=== PATIENT | male | born 1945 | race Caucasian/White ===

== ENCOUNTER → 2018-03-10 13:45 | Outpatient (CLI) | payer MEDICARE, OTHER, SELFPAY ==
--- NOTE | 2018-03-10 | DI.ECHO.S_ITS ---
[facility] +---------+ : : [address] : [place] : : : : [id number] : : : : Phone: [phone]---------+ Echocardiogram Report + + :Name: ADDIE EISENBERG Study Date: 03/10/2018 Height: 68 in : :[facility] Exam Location: [place] Weight: 193 lb : : Gender: Male BSA: 2.0 m2 : :: 1945 Age: 72 yrs BP: 112/62 mmHg: :Reason For Study: Atrial Fibrillation : :Ordering Physician: Latesha : :Rajinder Performed By: Jessica Becker : :Referring: LATESHA AKHTAR : + + Interpretation Summary 1) Normal left ventricular size, thickness, wall motion, and systolic function (EF 55-60%). 2) Normal right ventricular size and function. 3) There is mild aortic regurgitation. 4) Sinus rhythm present during the study. 5) Commpared to the echo done 09/20/2012, no significant change. Procedure: A two-dimensional transthoracic echocardiogram with color flow and Doppler was performed. The study quality was technically adequate. Comparison is made with the echocardiogram of 09/20/2012. The patient was in normal sinus rhythm during the exam. Left Ventricle: The left ventricle is normal in size. Left ventricular wall thickness is normal. The ejection fraction is estimated to be 55-60%. Left ventricular systolic function is normal without focal wall motion abnormalities. Right Ventricle: The right ventricle is normal size. The right ventricular systolic function is normal. Atria: Both atria are normal in size. The interatrial septum is intact with no evidence for an atrial septal defect. Mitral Valve: The mitral valve is normal in structure and function. There is trace mitral regurgitation. Aortic Valve: The aortic valve is trileaflet. The aortic valve opens well. There is mild aortic valve sclerosis. There is no aortic valve stenosis. There is mild aortic regurgitation. Tricuspid Valve: The tricuspid valve is normal in structure and function. There is mild tricuspid regurgitation. The right ventricular systolic pressure is estimated at 23 mmHg assuming a right atrial pressure of 3 mm Hg. Pulmonic Valve: The pulmonic valve is not well seen, but is grossly normal. There is a trace or physiologic amount of pulmonic regurgitation. Great Vessels: The aortic root is normal size. The ascending aorta is at the upper limits of normal in size. The IVC is of normal diameter and collapses greater than 50% with a sniff. This suggests a low right atrial pressure of 3 mm Hg. Pericardium/ Pleura There is no pericardial effusion. There is an anterior echo-free space consistent with a fat pad. There is no pleural effusion. MMode/2D Measurements & Calculations LVIDd: 4.5 cm LVOT diam: 2.5 cm LVIDs: 3.4 cm Ao root diam: 3.6 cm FS: 24.9 % asc Aorta Diam: 3.6 cm IVSd: 1.0 cm Ao Arch Diam (Prox Trans): 2.3 cm LVPWd: 1.1 cm LV rodriguez. diameter/BSA (cm/m^2): 2.2 LV sys. diameter/BSA (cm/m^2): 1.7 LA A2 area: 20.3 cm2 RA long axis: 4.3 cm LA A4 area: 18.7 cm2 RA area: 13.0 cm2 LA length (vol): 5.1 cm RA vol: 33.3 ml LA vol: 63.2 ml RA : 16.5 ml/m2 LA vol index: 31.4 ml/m2 RVD1 (basal): 4.7 cm TAPSE: 2.5 cm Doppler Measurements & Calculations Ao V2 max: 120.8 cm/sec LVOT Max Yayo: 96.3 cm/sec Ao V2 mean: 84.3 cm/sec LV V1 max P.7 mmHg Ao max P.8 mmHg LV V1 VTI: 20.0 cm Ao mean P.2 mmHg LULA(I,D): 3.9 cm2 Ao V2 VTI: 24.3 cm LULA(V,D): 3.8 cm2 sev ratio: 0.82 LULA indexed to BSA (cm^2/m^2): 1.9 AI P1/2t: 951.2 msec AI dec slope: 104.1 cm/sec2 MV E max yayo: 36.7 cm/sec TR max yayo: 221.8 cm/sec MV A max yayo: 47.7 cm/sec TR max P.7 mmHg MV E/A: 0.77 PA V2 max: 61.3 cm/sec MV dec time: 0.17 sec PA V2 mean: 42.7 cm/sec PA mean P.84 mmHg PA pr(Accel): 26.6 mmHg Reading Physician:04:00 PM
== END ==
PROVIDERS: Family Provider Family Medicine; PCP Family Medicine; Visit Provider Internal Medicine Cardiovascular Disease
DX: I48.0 Paroxysmal atrial fibrillation (principal); I08.2 Rheumatic disorders of both aortic and tricuspid valves
CPT/HCPCS: 93306

== ENCOUNTER → 2018-06-04 16:46 | Outpatient (CLI) | payer MEDICARE, OTHER, SELFPAY | PROVIDERS: Family Provider Family Medicine; PCP Family Medicine; Visit Provider Physician Assistant | DX: L72.0 Epidermal cyst (principal) | CPT/HCPCS: 87070; 87075; 87205 ==

== ENCOUNTER → 2018-12-28 13:00 | Oncology outpatient (ONC) | payer MEDICARE, OTHER, SELFPAY ==
--- NOTE | 2018-06-16 10:27 | ONC.SCHED ---
CALLED PT. TO CANCEL HIS APT. WITH SIRI PER HER REQUEST SHE IS OUT SICK TODAY. LET PT KNOW THAT SIRI WILL RESCHEDULE WHEN SHE IS BACK IN THE OFFICE.
--- NOTE | 2018-06-20 15:24 | MSW.VISIT ---
RADIO STATION OPERATOR Visit note - Data of Consult Primary Care Provider: Pk Burt MD - Consult Narrative Reason for consult: Counseling to adjust to coping with cancer of family members. Narrative: Michael Meraz is a 72 year old male who is seeking counseling to help him to cope with the terminal cancer diagnosis of both his stepdaughter and [id number]. He expresses that he and his , Rosangela, are trying to learn some new skills in how they can carry on supporting their daughter, primarily, while trying to maintain a sense of normalcy in their own lives and marriage. He states that they go down to spend time with their daughter, her 9-year old son, and the rest of the family several times per week. Their dtr is reportedly very frail and her disease is very advanced. RADIO STATION OPERATOR spent time providing information about differences in coping with grief and intensely emotional situations in families, and how communication styles can also vary from family member to family member. Pt's is feeling like she is needing to prioritize being with her dtr and supporting her grandson/son-in-law in getting through this difficult time. They remain hopeful that she may qualify for an immunotherapy drug in early July, which is their last hope for any kind of disease stabilization and prolongation of life. Pt presents as very insightful and introspective, and fully supports his in whatever they have to do to help their daughter at this time. After they were able to share with each other their own challenges with coping in this situation, pt was able to recognize that he is feeling more of an urgency to do something, fix-it, take steps to understand how to get through this. His was able to share her approach to coping, which is to be present, share feelings but not focused on tasks to accomplish. Pt, ultimately, is feeling a strong need to protect his from pain by trying to organize things for them, however his feels like she shuts down when he begins to get frustrated with her for not being able to be fully present with him at times. Another layer which has led to patient's need to help his with coping and taking care of herself (and himself) is complicated by her recent diagnosis of early memory loss. This RADIO STATION OPERATOR offered information about how grief and stress effect our cognition, and that it's very common to experience mind fog, be more forgetful, and less focused when going through a crisis such as they have been. The focus then became on ways to respond and react to each other when they are communicating that don't exacerbate frustrations on both sides. RADIO STATION OPERATOR provided examples of communication tools that they both felt that they could begin trying with each other. The main theme of this session seemed to revolve around maintaining a sense of hope, while living with uncertainty in what the future holds. CC: Colleen Allence-Laws, RADIO STATION OPERATOR Patient reports pain?: No - Social History housing: house household members: spouse service: No current occupational status: retired - Psychological Status Stressors: Interpersonal, Health Depression-related: Depressed mood: Absent, Loss of interest: Absent, Fatigue: Absent, Concentration/focus: Absent, Insomnia: Absent, Hypersomnia: Absent, Appetite changes: Absent, Feel guilt/worthlesness: Absent, Suicidal ideation: Absent, Psychomotor agitation: Absent, Psychomotor retardation: Absent - Mental Status Exam Orientation:: Time, Place and Person Appearance:: Well-groomed, Healthy-looking Speech:: Normal rate/volume/tao Movement:: Calm Mood:: Anxious Affect:: Congruent with mood Thought Process:: Normal Thought Content:: Normal Suicide Risk Degree: Low - Assessment/Goals/Plan Assessment: Pt was able to identify some of the different ways that he can begin to feel less anxious about how to handle the many stressors that he and his are coping with. One suggestion that we discussed was to schedule time to be with each other, spend time doing things that they enjoy, apart from family and tasks that can feel all-consuming. Pt also recognized that through wanting to protect his and their sense of normalcy, that he in turn can become frustrated and anxious in the process. Both pt and acknowledge how deeply they love and care about each other, and are beginning to recognize that they are each coping in different ways. Goals: 1. Begin scheduling time together apart from the caregiving needs of their daughter and family, as part of self-care and nurturing their own relationship. 2. Utilize some of the communication tools discussed in counseling, such as being aware of tone, non-verbal communication, and sharing what each partner needs/wants the other person to know/understand. 3. Pt and his value time in nature. We discussed taking the time to go out walking together again, which will also relieve some of the tension and emotional stress that they cope with as cancer caregivers. Plan: Pt will return in 1-week to continue the focus of stress management, coping with family cancer, and communication in his marital relationship. - Problem List Time Spent with patient: 60-minutes spent with pt in counseling Home Medications: Home Medications Medication Instructions Recorded Confirmed Type ASPIRIN (Aspirin) 324 mg PO Q12H #0 05/13/08 06/04/18 History TETRACYCLINE (TETRACYCLINE 250 mg PO Q DAY #0 05/13/08 06/04/18 History HYDROCHLORIDE) Allergies/Adverse Reactions: Allergies Allergy/AdvReac Type Severity Reaction Status Date / Time No Known Allergies Allergy Uncoded 10/13/17 12:01 - Problem List Patient Problems: Current Active Problems Anxiety associated with cancer diagnosis (Acute)
--- NOTE | 2018-07-01 15:00 | MSW.VISIT ---
REHABILITATION SERVICES COUNSELOR Visit note - Data of Consult Primary Care Provider: Pk Burt MD - Consult Narrative Reason for consult: Counseling to adjust to cancer of family members. Narrative: Michael Meraz is a 72 year old male seeking counseling to help him cope with the terminal cancer diagnosis of both his stepdaughter and [id number]. Patient arrived for this counseling visit appearing in good spirits today. Since our last visit, pt reports that he and his , Rosangela, have thought a lot about what we had discussed in our last session re: differences in communication and coping, recognizing ways to spend more intentional quality time together, and noticing a growing sense of acceptance and adjustment to their current circumstances as cancer caregivers. Pt states that he is feeling less frustrated, and more patient. He became tearful several times in sharing his own insights into his 's experience as a mother, coping with the mortality of her daughter, as well as his own fears of time running out for them as a couple in their own advanced age. He continues to share how meaningful his time together as a couple are, and see's in their own friends that health limitations can really impact the ability to remain active and engaged in activities that they enjoy together. Discussed ways that they can share their own experience and feelings with their daughter. Both pt and his feel that this is going to be the next best step in being present and available in meaningful and enriching ways with their daughter and her family. CC: Colleen Sim-Franklyn, REHABILITATION SERVICES COUNSELOR Patient reports pain?: No - Psychological Status Depression-related: Depressed mood: Absent, Loss of interest: Absent, Fatigue: Absent, Concentration/focus: Absent, Insomnia: Absent, Hypersomnia: Absent, Appetite changes: Absent, Feel guilt/worthlesness: Absent, Suicidal ideation: Absent, Psychomotor agitation: Absent, Psychomotor retardation: Absent - Mental Status Exam Orientation:: Time, Place and Person Appearance:: Well-groomed, Healthy-looking Speech:: Normal rate/volume/tao Movement:: Calm Mood:: Sad Affect:: Congruent with mood Thought Process:: Normal Thought Content:: Normal Suicide Risk Degree: Low - Assessment/Goals/Plan Assessment: Patient is making progress in utilizing suggestions from counseling to improve communication with his , manage his own sense of urgency in doing something to control how they manage their coping with terminally ill family members, and is adjusting to more flexibility in their schedule and individual needs. He reports feeling less anxious and has had significant insights into his own emotional state, as well as more awareness of his 's perspective of potentially losing her child to cancer. He's begun to think of ways to also take quality time with family away, for what he calls boy's weekends. This REHABILITATION SERVICES COUNSELOR shared with him how he has demonstrated such willingness to explore his own growth and roles he brings to this family, and how he has actively applied suggestions discussed in counseling in productive and beneficial ways. Goals: 1. Begin scheduling time together apart from the caregiving needs of their daughter and family, as part of self-care and nurturing their own relationship. 2. Utilize some of the communication tools discussed in counseling, such as being aware of tone, non-verbal communication, and sharing what each partner needs/wants the other person to know/understand. 3. Pt and his value time in nature. We discussed taking the time to go out walking together again, which will also relieve some of the tension and emotional stress that they cope with as cancer caregivers. Plan: Pt will return for next visit after the beginning of July, once his stepdaughter has received the highly anticipated information from her medical team about her continued plan of care and medical status. Home Medications: Home Medications Medication Instructions Recorded Confirmed Type ASPIRIN (Aspirin) 324 mg PO Q12H #0 05/13/08 06/04/18 History TETRACYCLINE (TETRACYCLINE 250 mg PO Q DAY #0 05/13/08 06/04/18 History HYDROCHLORIDE) Allergies/Adverse Reactions: Allergies Allergy/AdvReac Type Severity Reaction Status Date / Time No Known Allergies Allergy Uncoded 10/13/17 12:01 - Problem List Patient Problems: Current Active Problems Anxiety associated with cancer diagnosis (Acute)
--- NOTE | 2018-12-28 14:57 | MSW.VISIT ---
WHOLESALE BUYER Visit note - Data of Consult Primary Care Provider: Pk Burt MD - Consult Narrative Reason for consult: Grief support following the of his adult daughter. 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 Pt arrived today with his , and shared that their daughter had the day after Mother's Day. This visit focused on debriefing the events that took place both immediately prior and after her , as well as how pt/ and the rest of the family are coping with this loss. Both pt and were tearful in explaining that pt had suddenly at home, was only briefly revived with CPR and ended up on life support down at [facility]. Although it began as a crisis, the family pulled together in very beautiful and meaningful ways in the hospital, supporting their daughter's spouse and 10-year old son. WHOLESALE BUYER offered counseling relating to bereavement, pediatric bereavement/resources, and highlighted the many ways that pt/spouse utilized the communication and coping skills that they had been focused on in previous counseling visits. Both pt and spouse are adjusting appropriate to situation. Pt states that he and his are beginning to return to their own sense of a new normal, and have already began to spend more time with friends and engaging in the outdoor activities that they love. WHOLESALE BUYER provided counseling resources for their grandson and son-in-law, as well as encouraged pt/spouse to contact this WHOLESALE BUYER anytime in the future should they decide they need more support and counseling relating to this loss. CC: Colleen Allence-Laws, WHOLESALE BUYER Patient reports pain?: No - Code Status Resuscitation Status: Full Code - Psychological Status Stressors: Psychosocial Depression-related: Depressed mood: Absent, Loss of interest: Absent, Fatigue: Absent, Concentration/focus: Absent, Insomnia: Absent, Hypersomnia: Absent, Appetite changes: Absent, Feel guilt/worthlesness: Absent, Suicidal ideation: Absent, Psychomotor agitation: Absent, Psychomotor retardation: Absent - Mental Status Exam Orientation:: Time, Place and Person Appearance:: Well-groomed, Healthy-looking Speech:: Normal rate/volume/tao Movement:: Calm Mood:: Anxious Affect:: Tearful, Congruent with mood Thought Process:: Normal Suicide Risk Degree: Low - Assessment/Goals/Plan Assessment: Pt feels that he and his are now focused on getting back to their own sense of normalcy. They are coping well and seeking out community resources as appropriate for continued adjustment and bereavement in relation to their loss. They feel that they are no longer in need of additional counseling at this time, and that pt's treatment goals have been met at this time. Goals: Complete. This session ended with closure of counseling treatment at this time. - Problem List Time Spent with patient: 60-minutes Home Medications: Home Medications Medication Instructions Recorded Confirmed Type ASPIRIN (Aspirin) 324 mg PO Q12H #0 05/13/08 06/04/18 History TETRACYCLINE (TETRACYCLINE 250 mg PO Q DAY #0 05/13/08 06/04/18 History HYDROCHLORIDE) Allergies/Adverse Reactions: Allergies Allergy/AdvReac Type Severity Reaction Status Date / Time No Known Allergies Allergy Uncoded 10/13/17 12:01 - Problem List Patient Problems: Current Active Problems (Updated 06/21/18 @ 11:03 by RED Mccauley) Anxiety associated with cancer diagnosis (Acute)
== END ==
PROVIDERS: Family Provider Family Medicine; PCP Family Medicine; Visit Provider Social Worker Clinical
DX: Z71.89 Other specified counseling (principal); F43.22 Adjustment disorder with anxiety
CPT/HCPCS: 90837

== ENCOUNTER → 2022-07-08 14:00 | Outpatient (CLI) | payer MEDICARE, OTHER, SELFPAY ==
--- NOTE | 2022-07-08 | DI.NM.S_ITS ---
PROCEDURE: NM EXERCISE TREADMILL NON NUC COMPARISON: None. INDICATIONS: Paroxysmal atrial fibrillation FINDINGS: The patient exercised for 9 minutes and 1 second reaching 90% of maximum predicted heart rate. Appropriate BP response to exercise. Very good exercise tolerance (10.1 METs, KATHY -47%). No angina, no diagnostic ST changes, and no ectopy with exercise or during recovery. IMPRESSION: Low risk, normal treadmill ECG only stress test with very good exercise tolerance (KATHY -47%). Dictated by: Kalie Doll MD on 07/09/2022 at 12:28 Approved by: Kalie Doll MD on 07/09/2022 at 12:30
[2022-07-08 15:02] LABS: COVID19 -Nasal RAPID Negative (Negative)
== END ==
PROVIDERS: Family Provider Family Medicine; PCP Family Medicine; Referring Provider Internal Medicine Cardiovascular Disease; Visit Provider Internal Medicine Cardiovascular Disease
DX: I48.0 Paroxysmal atrial fibrillation (principal); Z20.822 Contact with and (suspected) exposure to COVID-19
CPT/HCPCS: 87635; 93017

== ENCOUNTER → 2022-08-21 11:17 | Outpatient (CLI) | payer MEDICARE, OTHER, SELFPAY ==
--- NOTE | 2022-08-21 | DI.RAD.S_ITS ---
PROCEDURE: XR KNEE RT 3V INDICATIONS: RIGHT KNEE PAIN TECHNIQUE: 3 views of the knee were acquired. COMPARISON: None. FINDINGS: Bones: No fractures or dislocations. No suspicious bony lesions. Minimal medial compartment joint space narrowing. Soft tissues: No joint effusion. No suspicious soft tissue calcifications. IMPRESSION: No trauma found. Only a mild degree medial compartment knee joint space narrowing is present consistent with mild degenerative change. Dictated by: Terrence Acevedo M.D. on 08/21/2022 at 14:26 Approved by: Terrence Acevedo M.D. on 08/21/2022 at 14:27
== END ==
PROVIDERS: Family Provider Family Medicine; PCP Family Medicine; Referring Provider Family Medicine; Visit Provider Family Medicine
DX: M25.561 Pain in right knee (principal)
CPT/HCPCS: 73562

== ENCOUNTER → 2022-10-05 12:32 | Outpatient (CLI) | payer MEDICARE, OTHER, SELFPAY ==
--- NOTE | 2022-10-05 | DI.ECHO.S_ITS ---
[facility]---------[facility] +---------+ : : [address] : [place] : : : : [id number] : : : : Phone: [phone]---------+ Echocardiogram Report + + :Name: ADDIE EISENBERG Study Date: 10/05/2022 Height: 68 in : :[facility] ReadingLocation: Weight: 195 lb : : Gender: Male BSA: 2.0 m2 : :: 1945 Age: 76 yrs BP: 120/78 mmHg: :Reason For Study: AORTIC INSUFFICIENCY : :Ordering Physician: GIOVANA, : :LATESHA Performed By: Lissa Salguero : :Referring: LATESHA AKHTAR : + + Interpretation Summary The left ventricle is normal in size and wall thickness. The ejection fraction is estimated to be 55-60%. The right ventricle is normal size. Right ventricular systolic function is at the lower limits of normal. There is mild to moderate aortic regurgitation. Compared to the prior echo study, there has been an increase in the severity of aortic regurgitation. There is mild tricuspid regurgitation. Compared to the prior echo exam, there has been no change in TR severity. The right ventricular systolic pressure is estimated to be at least 25 mmHg based on an estimated right atrial pressure of 3 mm Hg. Procedure: A two-dimensional transthoracic echocardiogram with color flow and Doppler was performed. The study quality was technically adequate. Comparison is made with the echocardiogram of 03/10/2018. The patient was in sinus rhythm with heart rates between 52-62 bpm during the exam. The patient had occasional PVCs during the exam. Left Ventricle: The left ventricle is normal in size and wall thickness. There is no thrombus. The ejection fraction is estimated to be 55-60%. There are no focal wall motion abnormalities. Diastolic parameters suggest a relaxation abnormality of the left ventricle, consistent with probable normal filling pressures. Right Ventricle: The right ventricle is normal size. Right ventricular systolic function is at the lower limits of normal. Atria: The left atrial size is normal. There has been no significant change since the previous study. Right atrial size is normal. There is no Doppler evidence for an interatrial shunt. Mitral Valve: The mitral valve leaflets are slightly calcified. There is mild mitral regurgitation. Aortic Valve: The aortic valve is trileaflet. The aortic valve opens well. The aortic valve is slightly calcified. There is no aortic valve stenosis. There is mild to moderate aortic regurgitation. Compared to the prior echo study, there has been an increase in the severity of aortic regurgitation. Tricuspid Valve: The tricuspid valve is normal in structure and function. There is mild tricuspid regurgitation. The right ventricular systolic pressure is estimated to be at least 25 mmHg based on an estimated right atrial pressure of 3 mm Hg. Compared to the prior echo exam, there has been no change in TR severity. Pulmonic Valve: The pulmonic valve is not well visualized. There is mild pulmonic regurgitation. Great Vessels: The aortic root is normal size. The dimensions of the ascending aorta are normal. The IVC is of normal diameter and collapses greater than 50% with a sniff. This suggests a low right atrial pressure of 3 mm Hg. Pericardium/ Pleura There is no pericardial effusion. There is no pleural effusion. MMode/2D Measurements & Calculations LVIDd: 4.9 cm LVOT diam: 2.0 cm LVIDs: 3.4 cm Ao root diam: 3.6 cm FS: 31.2 % asc Aorta Diam: 3.7 cm EPSS: 1.3 cm Ao Arch Diam (Prox Trans): 2.7 cm IVSd: 0.89 cm LVPWd: 0.75 cm LV rodriguez. diameter/BSA (cm/m^2): 2.4 LV sys. diameter/BSA (cm/m^2): 1.7 LA A2 area: 23.3 cm2 RA long axis: 5.2 cm LA A4 area: 17.0 cm2 RA area: 15.1 cm2 LA length (vol): 5.0 cm RA vol: 37.0 ml LA vol: 67.5 ml RA : 18.3 ml/m2 LA vol index: 33.4 ml/m2 IVC diam: 1.7 cm RVD1 (basal): 3.5 cm RVD2 (mid): 2.9 cm TAPSE: 1.6 cm Doppler Measurements & Calculations Ao V2 max: 144.6 cm/sec LVOT Max Yayo: 111.2 cm/sec Ao V2 mean: 101.8 cm/sec LV V1 max P.0 mmHg Ao max P.4 mmHg LV V1 VTI: 25.7 cm Ao mean P.7 mmHg LULA(I,D): 2.3 cm2 Ao V2 VTI: 35.3 cm LULA(V,D): 2.4 cm2 sev ratio: 0.73 LULA indexed to BSA (cm^2/m^2): 1.1 AI P1/2t: 860.6 msec AI dec slope: 148.1 cm/sec2 MV E max yayo: 49.1 cm/sec TR max yayo: 236.2 cm/sec MV A max yayo: 55.0 cm/sec TR max P.3 mmHg MV E/A: 0.89 PA V2 max: 102.4 cm/sec Med Peak E' Yayo: 8.1 cm/sec PA V2 mean: 73.8 cm/sec E/E' med: 6.0 PA mean P.4 mmHg Lat Peak E' Yayo: 7.1 cm/sec PA pr(Accel): 27.6 mmHg E/E' lat: 6.9 E/e' average: 6.5 MV dec time: 0.24 sec SV(LVOT): 81.0 ml Reading Physician:03:46 PM
== END ==
PROVIDERS: Family Provider Family Medicine; PCP Family Medicine; Referring Provider Internal Medicine Cardiovascular Disease; Visit Provider Internal Medicine Cardiovascular Disease
DX: I08.3 Combined rheumatic disorders of mitral, aortic and tricuspid valves (principal)
CPT/HCPCS: 93306

== ENCOUNTER → 2023-05-11 14:39 | Outpatient (CLI) | payer MEDICARE, OTHER, SELFPAY ==
--- NOTE | 2023-05-11 | DI.RAD.S_ITS ---
PROCEDURE: XR HAND RT MIN 3V INDICATIONS: THUMB PAIN TECHNIQUE: 3 views of the hand(s) acquired. COMPARISON: None. FINDINGS: Bones: No fractures or dislocations. Carpal bones are normally aligned. Erosion noted in the lateral margin of the head of the 1st metacarpal. Polyarticular osteoarthritic degenerative changes noted. Soft tissues: No suspicious soft tissue calcifications. IMPRESSION: Small erosion in the head of the 1st metacarpal concerning for inflammatory arthritis. Dictated by: Ami Urbina MD, PhD on 05/11/2023 at 15:21 Approved by: Ami Urbina MD, PhD on 05/11/2023 at 15:22
== END ==
PROVIDERS: Family Provider Family Medicine; PCP Family Medicine; Referring Provider Family Medicine; Visit Provider Family Medicine
DX: M79.644 Pain in right finger(s) (principal)
CPT/HCPCS: 73130

== ENCOUNTER → 2023-07-09 13:25 | Outpatient (CLI) | payer MEDICARE, OTHER, SELFPAY | PROVIDERS: Family Provider Family Medicine; PCP Family Medicine; Visit Provider Urology | DX: C61 Malignant neoplasm of prostate (principal); R39.9 Unspecified symptoms and signs involving the genitourinary system | CPT/HCPCS: 55876; 76942; 87086; 96372; 96402; 99213; A4648; J1580; J9217 ==

== ENCOUNTER → 2023-08-05 13:04 | Outpatient (CLI) | payer MEDICARE, OTHER, SELFPAY ==
--- NOTE | 2023-08-05 13:06 | DI.US.S_ITS ---
PROCEDURE: US SCROTUM INDICATIONS: left testicle pain TECHNIQUE: Real-time scanning was performed of the scrotum and testicles, with image documentation. Color and pulse Doppler interrogation was performed of both testicles. COMPARISON: None. FINDINGS: Right: Testicle is normal in size at 4.4 x 3.3 x 2.5 cm, and heterogeneous in echotexture. Epididymal cyst is present.. No hydrocele or varicoceles. Overlying scrotal skin is normal in thickness. Left: Testicle is normal in size at 4.6 x 3.1 x 2.8 cm, and heterogeneous in echotexture. Epididymal cyst is present. Increased epididymal vascularity is present. No varicocele. There is a 60 mm x 35 mm x 17 mm hydrocele with debris and septation. Overlying scrotal skin is thickened. Doppler: Color and pulse Doppler demonstrate increased arterial flow to the bilateral testes, left greater than right. Intact venous flow is present bilaterally. IMPRESSION: 1. Severe left epididymo-orchitis. 2. Mild right orchitis. Dictated by: Chao Lopez M.D. on 08/05/2023 at 14:37 Approved by: Chao Lopez M.D. on 08/05/2023 at 14:39
== END ==
PROVIDERS: Family Provider Family Medicine; PCP Family Medicine; Referring Provider Family Medicine; Visit Provider Family Medicine
DX: N50.812 Left testicular pain (principal); N45.2 Orchitis
CPT/HCPCS: 76870; 93975

== ENCOUNTER → 2023-08-19 08:14 | Outpatient (CLI) | payer MEDICARE, OTHER, SELFPAY ==
[2023-08-19 10:36] LABS: Prostate Specific Antigen 2.93 ng/mL (0.10-4.00)
== END ==
PROVIDERS: Family Provider Family Medicine; PCP Family Medicine; Referring Provider Urology; Visit Provider Urology
DX: C61 Malignant neoplasm of prostate (principal)
CPT/HCPCS: 36415; 84153

== ENCOUNTER 2023-10-14 00:54 | Emergency (ER) | payer MEDICARE, OTHER, SELFPAY ==
[2023-10-14] VITALS (9 sets, daily range): BP systolic 104–117; BP diastolic 61–84; PULSE 58–174; RESP 18–25; TEMP 36.6–36.9; O2SAT 98–100; BMI 28.8
--- NOTE | 2023-10-14 01:22 | ED.ARRPALP ---
HPI - Arrhythmia/Palpitations General Chief Complaint: Arrhythmia/Palpitations Stated Complaint: AFIB Time Seen by Provider: 10/14/23 01:09 Source: patient and family Mode of arrival: Ambulatory History of Present Illness HPI narrative: Patient is a 69-year-old male. Has a history of atrial fibrillation. Is on metoprolol and also flecainide. Recently returned home from a trip [place]. States that he lost his medications when he left them on an airplane. He has not had any of his medications and approximately 36 hours. Proximally 1-2 hours prior to arrival here in the emergency department he felt like his heart was beating fast. He denies chest pain or shortness of breath or lightheadedness. He did not have any medications at home to take. He states normally when this happens he takes an extra dose of his medication and it takes care of his AFib but was unable to do so. Related Data Home Medications Medication Instructions Recorded Confirmed aspirin 81 mg tablet,delayed 81 mg PO DAILY 02/09/19 07/09/23 release (Adult Low Dose Aspirin) atorvastatin 20 mg tablet 20 mg PO DAILY 02/09/19 07/09/23 flecainide 50 mg tablet 50 - 200 mg PO Q12H 02/09/19 07/09/23 levothyroxine 25 mcg capsule 25 mcg PO DAILY 02/09/19 07/09/23 metoprolol succinate 25 mg 25 mg PO DAILY 02/09/19 07/09/23 tablet,extended release 24 hr omeprazole 20 mg capsule,delayed 20 mg PO DAILY 02/09/19 07/09/23 release tamsulosin 0.4 mg capsule 0.4 mg PO DAILY 02/09/19 07/09/23 ResMed AirSense 10 05/15/21 07/09/23 Previous Rx's Medication Instructions Recorded lorazepam 1 mg tablet 1 mg PO DAILY PRN Procedure #1 tab 07/08/23 bicalutamide 50 mg tablet 50 mg PO DAILY #90 tabs 07/23/23 Allergies Allergy/AdvReac Type Severity Reaction Status Date / Time No Known Allergies Allergy Uncoded 05/20/23 10:41 Review of Systems Constitutional Constitutional: Reports system reviewed and no additional complaints, except as documented Cardiovascular Cardiovascular: Reports system reviewed and no additional complaints, except as documented Respiratory Respiratory: Reports system reviewed and no additional complaints, except as documented Integumentary/Breasts Skin/Breast: Reports system reviewed and no additional complaints, except as documented Neurologic Neurologic: Reports system reviewed and no additional complaints, except as documented Patient History Medical History Androgen deprivation therapy Orchitis, left Rising PSA level Elevated PSA Lower urinary tract symptoms H/O nephrolithotomy with removal of calculi Prostate cancer BPH (benign prostatic hyperplasia) Atrial fibrillation Hypothyroidism Hypertension Hyperlipidemia Obstructive sleep apnea Anxiety associated with cancer diagnosis Surgical History H/O hernia repair Family History Grandfather Stomach cancer Grandmother Diabetes mellitus Social History marital status: household members: spouse lives independently: Yes caregiver/support person: No housing: house occupational status: other Previous occupational history: Retired Smoking Status: Former smoker Tobacco: How many years used: 5 alcohol intake: current caffeine: Yes Type(s) of exercise: walking and bicycling frequency: 3-4 times per week Smoking Status: Former smoker alcohol intake frequency: 0-2 drinks per day Alcohol type: wine Substance Use Type: does not use Exam Initial Vital Signs Initial Vital Signs: Vital Signs Temperature 97.9 F 10/14/23 01:08 Pulse Rate 174 H 10/14/23 01:08 Respiratory Rate 20 10/14/23 01:08 Blood Pressure 110/75 10/14/23 01:08 Oxygen Delivery Method Room Air 10/14/23 01:08 Const General: cooperative, comfortable and No ill appearing HENSC Head: normal to inspection and normocephalic Resp Effort & Inspection: normal respiratory effort Auscultation: clear to auscultation bilaterally Cardio Rate: tachycardic Rhythm: regular rhythm Skin General: no rashes or lesions noted Neuro General: patient alert, patient awake and moves all extremities Course Orders Ordered: ED Orders 10/14/23 EKG-12 Lead Routine 10/14/23 01:10 EKG-12 Lead Stat 10/14/23 01:11 Complete Blood Count AUTO DIFF Stat Comprehensive Metabolic Panel Stat Lipase Stat Magnesium Stat 10/14/23 01:35 EKG-12 Lead Stat Discontinued Medications Flecainide Acetate (Flecainide 100 Mg Tablet) 100 mg PO NOW ONE Stop: 10/14/23 01:25 Last Admin: 10/14/23 01:32 Dose: 100 mg Documented By: BRYON Sodium Chloride (Normal Saline 0.9%) 1,000 mls @ 125 mls/hr IV CONT [place] Metoprolol Succinate (Metoprolol Er 25 Mg Tablet) 25 mg PO NOW ONE Stop: 10/14/23 01:25 Last Admin: 10/14/23 01:32 Dose: 25 mg Documented By: BRYON Vital Signs Vital signs: Vital Signs - 8 hr 10/14/23 01:08 10/14/23 01:10 10/14/23 01:25 Temperature 97.9 F Pulse Rate 174 H 159 H Respiratory Rate 20 25 H Blood Pressure 110/75 112/74 Pulse Oximetry 99 Oxygen Delivery Method Room Air 10/14/23 01:25 10/14/23 01:30 10/14/23 01:30 Temperature Pulse Rate 153 H 165 H Respiratory Rate 25 H 19 Blood Pressure 116/61 Pulse Oximetry 98 99 Oxygen Delivery Method 10/14/23 01:32 10/14/23 02:00 10/14/23 02:01 Temperature Pulse Rate 165 H 65 67 Respiratory Rate 18 19 Blood Pressure 116/61 Pulse Oximetry 98 99 Oxygen Delivery Method 10/14/23 02:01 10/14/23 02:30 10/14/23 02:30 Temperature Pulse Rate 58 L Respiratory Rate 21 Blood Pressure 117/84 104/65 Pulse Oximetry 99 Oxygen Delivery Method 10/14/23 02:35 Temperature 98.4 F Pulse Rate 86 Respiratory Rate 18 Blood Pressure 105/65 Pulse Oximetry 100 Oxygen Delivery Method MDM - Arrhythmia/Palpitations Lab Data Attestation: I reviewed the patient's lab results. 10/14/23 01:11 10/14/23 01:11 Labs: Lab Results 10/14/23 Range/Units 01:11 WBC 5.3 (4.5-11.0) X10^3/uL RBC 4.89 (4.5-5.9) X10^6/uL Hgb 15.9 (13.5-17.5) g/dL Hct 46.0 (41-53) % MCV 94.0 (80-100) fL MCH 32.5 (26-34) PG MCHC 34.6 (30-36) % RDW 13.2 (11.6-14.8) % Plt Count 163 (150-400) X10^3/uL Neut % (Auto) 61.6 (50-75) % Lymph % (Auto) 30.2 (25-40) % [place] % (Auto) 6.4 (3-14) % Eos % (Auto) 1.1 L (2-4) % Baso % (Auto) 0.7 (0-2) % Neut # (Auto) 3300 (0017-5371) /uL Lymph # (Auto) 1600 (7862-1742) /uL [place] # (Auto) 300 (0-900) /uL Eos # (Auto) 100 (0-450) /uL Baso # (Auto) 0 (0-100) /uL Sodium 138 (137-145) mmol/L Potassium 4.2 (3.4-5.1) mmol/L Chloride 110 H (98-107) mmol/L Carbon Dioxide 24 (22-32) mmol/L BUN 19 (9-20) mg/dL Creatinine 1.03 (0.66-1.25) mg/dL Estimated GFR > 60 (>60) mL/min BUN/Creatinine Ratio 18.4 (6-22) Glucose 100 (80-110) mg/dL Calcium 9.2 (8.4-10.2) mg/dL Magnesium 2.0 (1.6-2.3) mg/dL Total Bilirubin 1.0 (0.2-1.3) mg/dL AST 41 (17-59) IU/L ALT 46 (<50) IU/L Alkaline Phosphatase 79 (38-126) U/L Total Protein 6.8 (6.3-8.2) g/dL Albumin 4.1 (3.5-5.0) g/dL Globulin 2.7 (1.7-4.1) g/dL Albumin/Globulin Ratio 1.5 (1.0-2.8) Lipase 181 (23-300) U/L ECG Data Interpretation: Atrial fibrillation Ventricular rate 169 Left axis deviation Normal QRS Nonspecific ST T wave changes After cardioversion Sinus rhythm Ventricular rate is 72 Left axis deviation QRS [address] T wave changes MDM Narrative Medical decision making narrative: Patient was stable but was tachycardic. Almost immediately after receiving an oral dose of metoprolol and flecainide patient converted to sinus rhythm. This makes me question whether or not of the conversion was because of the medication or that he just converted on his own. Despite this patient was observed here in the emergency department for a period of time without any return of his symptoms. He stated that he would contact his mobility architect manager in the morning to get refills of his medicines and he does have refills in the pharmacy already. Patient states he felt well enough to be discharged home. He was given return precautions. He expressed understanding and agreement. Discharge Plan Departure Patient Disposition: Home Clinical Impression: Atrial fibrillation Instructions: DI for Atrial Fibrillation Activity Restrictions/Additional Instructions: Recommend that you continue to take all of your medications as directed. Contact your primary care provider and also your mobility architect manager for follow-up. Return to the emergency department for new or worsening symptoms. Prescriptions: No Action bicalutamide 50 mg tablet 50 mg PO DAILY Qty: 90 0RF (DME) ResMed AirSense 10 See Rx Instructions .Route .MEDSUPPLY Rx Instructions: CPAP Min: 9 Max: 14 DME: omeprazole 20 mg capsule,delayed release(DR/EC) 20 mg PO DAILY atorvastatin 20 mg tablet 20 mg PO DAILY aspirin [Adult Low Dose Aspirin] 81 mg tablet,delayed release (DR/EC) 81 mg PO DAILY flecainide 50 mg tablet 50 - 200 mg PO Q12H metoprolol succinate 25 mg tablet extended release 24 hr 25 mg PO DAILY levothyroxine 25 mcg capsule 25 mcg PO DAILY tamsulosin 0.4 mg capsule 0.4 mg PO DAILY lorazepam 1 mg tablet 1 mg PO DAILY PRN (Reason: Procedure) Qty: 1 0RF Rx Instructions: Take 1 hour to 1/2 hour prior to procedure Referrals: Pk Burt MD [Primary Care Provider] - Stand Alone Forms: Patient Portal/API
[2023-10-14 01:31] LABS: Add Manual Diff / Slide Review NO; Basophils Absolute Auto 0 /uL (0-100); Basophils Percent Auto 0.7 % (0-2); Eosinophils Absolute Auto 100 /uL (0-450); Eosinophils Percent Auto 1.1 % (2-4); Hemoglobin 15.9 g/dL (13.5-17.5); Lymphocytes Absolute Auto 1600 /uL (1100-4500); Lymphocytes Percent Auto 30.2 % (25-40); Mean Corpuscular HGB Conc 34.6 % (30-36); Mean Corpuscular Hemoglobin 32.5 PG (26-34); Monocytes Absolute Auto 300 /uL (0-900); Monocytes Percent Auto 6.4 % (3-14); Neutrophils Absolute Auto 3300 /uL (1500-7000); Neutrophils Percent Auto 61.6 % (50-75); Platelet Count 163 X10^3/uL (150-400); Red Blood Cell Count 4.89 X10^6/uL (4.5-5.9); Red Cell Distribution Width 13.2 % (11.6-14.8); White Blood Cell Count 5.3 X10^3/uL (4.5-11.0)
[2023-10-14] MEDS: METOPROLOL ER 25 MG TABLET PO (01:32)
[2023-10-14] MEDS: FLECAINIDE 100 MG TABLET PO (01:32)
[2023-10-14 01:50] LABS: Alanine Aminotransferase 46 IU/L (<50); Albumin 4.1 g/dL (3.5-5.0); Albumin Globulin Ratio 1.5 (1.0-2.8); Alkaline Phosphatase 79 U/L (38-126); Aspartate Aminotransferase 41 IU/L (17-59); BUN Creatinine Ratio 18.4 (6-22); Blood Urea Nitrogen 19 mg/dL (9-20); Calcium 9.2 mg/dL (8.4-10.2); Carbon Dioxide 24 mmol/L (22-32); Chloride 110 mmol/L (98-107); Estimated Glomerular Filt Rate > 60 mL/min (>60); Globulin 2.7 g/dL (1.7-4.1); Glucose 100 mg/dL (80-110); HEMOLYSIS 22 (0-50); Lipase 181 U/L (23-300); Potassium 4.2 mmol/L (3.4-5.1); Sodium 138 mmol/L (137-145); Total Protein 6.8 g/dL (6.3-8.2)
--- NOTE | 2023-10-14 02:11 | PC.NURSE ---
At 0132, as the pt had just swallowed his PO pills per MAR, the pt converted back to normal sinus. EKG done and MD Hoskins confirmed. Pt in sinus. Says his palpitations are gone. Denies any concerns at this time.
== END 2023-10-14 02:38 | disposition home or self-care (01) ==
PROVIDERS: Emergency Provider Emergency Medicine; Family Provider Family Medicine; PCP Family Medicine
DX: I48.91 Unspecified atrial fibrillation (principal); R00.2 Palpitations
CPT/HCPCS: 36415; 80053; 83690; 83735; 84153; 85025; 93005; 99284

== ENCOUNTER → 2023-10-20 09:06 | Outpatient (CLI) | payer MEDICARE, OTHER, SELFPAY | PROVIDERS: Family Provider Family Medicine; PCP Family Medicine; Visit Provider Urology | DX: R39.9 Unspecified symptoms and signs involving the genitourinary system (principal) | CPT/HCPCS: 87086 ==

== ENCOUNTER → 2023-11-03 11:03 | Outpatient (CLI) | payer MEDICARE, OTHER, SELFPAY ==
--- NOTE | 2023-11-03 11:04 | DI.MRI.S_ITS ---
PROCEDURE: MR HIP LT WO CON INDICATIONS: Unspecified disorder of synovium and tendon, left TECHNIQUE: Noncontrast coronal T1 spin echo and STIR through the bony pelvis. Coronal and axial T2 fast spin echo with fat saturation, sagittal T1 spin echo, and oblique axial T2 fast spin echo with fat saturation through the hip. COMPARISON: Outside Film, NM, PET PSMA PYLARIFY, 11/10/2022, 18:52. [facility] [place], CR, XR PELVIS WITH BILATERAL LATERAL HIPS, 05/04/2023, 15:50. FINDINGS: Image quality: Excellent. Bones and joints: Bone marrow of the pelvic ring and proximal femurs show normal signal throughout. No acute trabecular bone injury or fracture. Benign bone island is seen in the right iliac bone. No avascular necrosis of the femoral head. Moderate right and mild left sacroiliac joint degenerative changes. Degenerative disc disease and facet hypertrophy are seen in the included lumbar spine with suspected multifocal spinal canal narrowing. Tendons and ligaments: There is full-thickness, partial width tearing of the posterior gluteus minimus and anterior gluteus medius tendons at their insertions onto the greater trochanter with moderate trochanteric and small subgluteal bursal effusions. The proximal iliotibial band appears intact. The iliopsoas tendon appears intact, without adjacent bursal fluid collections. The origin of the hamstring tendon demonstrates mild tendinosis. The tendons for the direct and indirect heads of the rectus femoris muscle appear intact. Labrum and cartilage: There is diffuse grade 2-3 cartilage thinning in the hip with subchondral cystic changes and small marginal osteophytes. No significant effusion. Diffuse labral degeneration is seen with chronic degenerative tearing. A posterior superior paralabral cyst is seen measuring up to 14 mm on coronal images. There is normal morphology of the femoral head and acetabulum. Soft tissues: Visualized muscles demonstrate normal bulk and internal signal. Quadratus femoris muscle demonstrates no internal edema to suggest ischiofemoral impingement. The proximal sciatic neurovascular bundle appears normal adjacent to the hamstring tendons. Pelvic soft tissues demonstrate no acute abnormality. IMPRESSION: 1. Full-thickness, partial width tearing of the distal left gluteus minimus and medius tendons at their insertion onto the greater trochanter with moderate surrounding bursal fluid. 2. Moderate left hip osteoarthrosis. Diffuse labral degeneration and chronic degenerative tearing. A small paralabral cyst is seen posterior superiorly. 3. Moderate right and mild left sacroiliac joint osteoarthrosis. 4. Multilevel degenerative changes in the lumbar spine with suspected spinal canal narrowing. Approved by: Gerardo Hernandez M.D. on 11/03/2023 at 15:38
== END ==
PROVIDERS: Family Provider Family Medicine; PCP Family Medicine; Referring Provider Orthopaedic Surgery Adult Reconstructive Orthopaedic Surgery; Visit Provider Orthopaedic Surgery Adult Reconstructive Orthopaedic Surgery
DX: S76.012A Strain of muscle, fascia and tendon of left hip, initial encounter (principal); M16.12 Unilateral primary osteoarthritis, left hip; M24.852 Other specific joint derangements of left hip, not elsewhere classified; M67.952 Unspecified disorder of synovium and tendon, left thigh; M46.1 Sacroiliitis, not elsewhere classified; M47.816 Spondylosis without myelopathy or radiculopathy, lumbar region
CPT/HCPCS: 73721

== ENCOUNTER → 2023-11-26 08:45 | Outpatient (CLI) | payer MEDICARE, OTHER, SELFPAY ==
[2023-11-26 09:51] LABS: Appearance Urine UA CLEAR; Bilirubin Urine UA NEGATIVE (NEGATIVE); Color Urine UA YELLOW; Glucose Urine UA NEGATIVE (Negative); Ketones Urine UA NEGATIVE (NEGATIVE); Leukocyte Esterase Urine UA NEGATIVE (NEGATIVE); Nitrite Urine UA NEGATIVE (Negative); Occult Blood Urine UA TRACE-INTACT (Negative); Protein Urine UA NEGATIVE (Negative); Specific Gravity Urine UA <=1.005 (1.000-1.035); Urobilinogen Urine UA 0.2 E.U./dL (0.2); pH Urine UA 5.5 (4.5-8.0)
[2023-11-26 10:08] LABS: Bacteria Urine None Seen; RBC Urine None Seen (0-5/HPF); Squamous Epithelial Cell Urine None Seen (0-5/HPF); Urine Volume 10mL (spun); WBC Urine None Seen (0-5/HPF)
[2023-11-26 10:09] LABS: Culture Indicated Urine Cult Not Indicated
== END ==
PROVIDERS: Family Provider Family Medicine; PCP Family Medicine; Referring Provider Urology; Visit Provider Urology
DX: R39.9 Unspecified symptoms and signs involving the genitourinary system (principal)
CPT/HCPCS: 81001

== ENCOUNTER → 2023-11-26 15:27 | Outpatient (CLI) | payer MEDICARE, OTHER, SELFPAY ==
--- NOTE | 2023-11-26 15:29 | DI.RAD.S_ITS ---
PROCEDURE: XR KUB INDICATIONS: kidney stones TECHNIQUE: One view of the abdomen acquired. COMPARISON: [facility], CT, CT BARRIENTOS, 10/25/2023, 12:11. FINDINGS: Surgical changes and devices: None. Bowel: Moderate fecal debris in the right colon obscures the right renal shadow. Soft tissues: 1.4 by 1.0 cm calculus projects over the left kidney. Surgical clips in the pelvis Bones: No suspicious bony lesions. IMPRESSION: 1.4 cm calculus projects over the lower pole the left kidney Approved by: Mao Mcgregor M.D. on 11/26/2023 at 17:53
== END ==
PROVIDERS: Family Provider Family Medicine; PCP Family Medicine; Referring Provider Urology; Visit Provider Urology
DX: N20.0 Calculus of kidney (principal); R82.81 Pyuria; R39.9 Unspecified symptoms and signs involving the genitourinary system
CPT/HCPCS: 74018; 81001

== ENCOUNTER → 2024-01-17 13:54 | Outpatient (CLI) | payer MEDICARE, OTHER, SELFPAY ==
[2024-01-17 16:24] LABS: Prostate Specific Antigen 0.558 ng/mL (0.10-4.00)
== END ==
PROVIDERS: Family Provider Family Medicine; PCP Family Medicine; Referring Provider Urology; Visit Provider Urology
DX: R39.14 Feeling of incomplete bladder emptying (principal); R97.20 Elevated prostate specific antigen [PSA]
CPT/HCPCS: 36415; 84153

== ENCOUNTER → 2024-01-18 15:35 | Outpatient (CLI) | payer MEDICARE, OTHER, SELFPAY | PROVIDERS: Family Provider Family Medicine; PCP Family Medicine; Visit Provider Urology | DX: R39.9 Unspecified symptoms and signs involving the genitourinary system (principal); R39.14 Feeling of incomplete bladder emptying | CPT/HCPCS: 87086 ==

== ENCOUNTER → 2024-02-18 09:32 | Outpatient (CLI) | payer MEDICARE, OTHER, SELFPAY ==
[2024-02-18 11:23] LABS: Prostate Specific Antigen 0.424 ng/mL (0.10-4.00)
== END ==
PROVIDERS: Family Provider Family Medicine; PCP Family Medicine; Referring Provider Urology; Visit Provider Urology
DX: R97.20 Elevated prostate specific antigen [PSA] (principal); C61 Malignant neoplasm of prostate; N40.1 Benign prostatic hyperplasia with lower urinary tract symptoms; R35.0 Frequency of micturition; Z79.818 Long term (current) use of other agents affecting estrogen receptors and estrogen levels
CPT/HCPCS: 36415; 84153

== ENCOUNTER → 2024-04-14 12:29 | Outpatient (CLI) | payer MEDICARE, OTHER, SELFPAY ==
[2024-04-14 17:38] LABS: Prostate Specific Antigen 0.286 ng/mL (0.10-4.00)
== END ==
PROVIDERS: Family Provider Family Medicine; PCP Family Medicine; Referring Provider Urology; Visit Provider Urology
DX: R97.20 Elevated prostate specific antigen [PSA] (principal); R39.9 Unspecified symptoms and signs involving the genitourinary system
CPT/HCPCS: 84153

== ENCOUNTER → 2024-04-17 15:18 | Outpatient (CLI) | payer MEDICARE, OTHER, SELFPAY | PROVIDERS: Family Provider Family Medicine; PCP Family Medicine; Visit Provider Urology | DX: R39.9 Unspecified symptoms and signs involving the genitourinary system (principal) | CPT/HCPCS: 87086 ==

== ENCOUNTER → 2024-07-04 10:10 | Outpatient (CLI) | payer MEDICARE, OTHER, SELFPAY ==
[2024-07-04 11:46] LABS: Prostate Specific Antigen 0.167 ng/mL (0.10-4.00)
== END ==
PROVIDERS: Family Provider Family Medicine; PCP Family Medicine; Referring Provider Urology; Visit Provider Urology
DX: C61 Malignant neoplasm of prostate (principal)
CPT/HCPCS: 36415; 84153

== ENCOUNTER 2024-08-22 23:44 | Emergency (ER) | payer MEDICARE, OTHER, SELFPAY ==
--- NOTE | 2024-08-22 23:50 | DI.RAD.S_ITS ---
PROCEDURE: XR CHEST 1V INDICATIONS: chest pain TECHNIQUE: One view of the chest was acquired. COMPARISON: [facility], , CHEST 2 VIEW, 09/26/2014, 16:07. FINDINGS: Surgical changes and devices: None. Lungs and pleura: Mild left basilar subsegmental atelectasis. No pleural effusions or pneumothorax. Mediastinum: Mediastinal contours appear normal. Heart size is normal. Bones and chest wall: No suspicious bony lesions. Overlying soft tissues appear unremarkable. IMPRESSION: Mild left basilar subsegmental atelectasis. Otherwise, no acute cardiothoracic process. Dictated by: Sim Woodruff M.D. on 08/23/2024 at 0:25 Approved by: Sim Woodruff M.D. on 08/23/2024 at 0:26
--- NOTE | 2024-08-22 23:53 | EKG_ITS ---
[place] [id number] [place] [id number] Test Date: 2024-08-22 Pat Name: Michael Meraz Department: [facility] Room: Gender: Male Ingot Header: GERSON : 1945 Requested By: Order Number: [id number] Reading MD: Bridger Mcarthur MD Measurements Intervals Crystal Rate: 116 P: AR: QRS: -50 QRSD: 126 T: -2 QT: 368 QTc: 511 Interpretive Statements Atrial fibrillation with rapid ventricular response Left axis deviation Nonspecific intraventricular block Electronically Signed On 08-23-2024 7:30:43 PST by Bridger Mcarthur MD
[2024-08-22 23:57] VITALS: BP 117/60; PULSE 115; RESP 18; TEMP 36.6; O2SAT 98; BMI 28.8
[2024-08-23 00:14] LABS: Add Manual Diff / Slide Review NO; Basophils Absolute Auto 0 /uL (0-100); Basophils Percent Auto 0.5 % (0-2); Eosinophils Absolute Auto 100 /uL (0-450); Eosinophils Percent Auto 0.9 % (2-4); Hematocrit 44.4 % (41-53); Hemoglobin 15.4 g/dL (13.5-17.5); Lymphocytes Absolute Auto 1400 /uL (1100-4500); Lymphocytes Percent Auto 15.9 % (25-40); Mean Corpuscular HGB Conc 34.7 % (30-36); Mean Corpuscular Hemoglobin 32.1 PG (26-34); Mean Corpuscular Volume 92.5 fL (80-100); Monocytes Absolute Auto 600 /uL (0-900); Monocytes Percent Auto 6.4 % (3-14); Neutrophils Absolute Auto 6800 /uL (1500-7000); Neutrophils Percent Auto 76.3 % (50-75); Platelet Count 180 X10^3/uL (150-400); Red Cell Distribution Width 13.3 % (11.6-14.8); White Blood Cell Count 8.9 X10^3/uL (4.5-11.0)
[2024-08-23 00:15] LABS: Prothrombin Time 11.1 SECONDS (9.4-12.5)
[2024-08-23 00:18] LABS: PTT Partial Thromboplastin Tim 30 SECONDS (25.1-36.5)
[2024-08-23 00:19] LABS: Alanine Aminotransferase 43 IU/L (<50); Albumin 4.1 g/dL (3.5-5.0); Albumin Globulin Ratio 1.6 (1.0-2.8); Alkaline Phosphatase 84 U/L (38-126); Aspartate Aminotransferase 35 IU/L (17-59); BUN Creatinine Ratio 21.3 (6-22); Bilirubin Total 0.7 mg/dL (0.2-1.3); Blood Urea Nitrogen 23 mg/dL (9-20); Calcium 8.7 mg/dL (8.4-10.2); Carbon Dioxide 29 mmol/L (22-32); Chloride 103 mmol/L (98-107); Creatine Kinase 188 U/L (55-170); Estimated Glomerular Filt Rate > 60 mL/min (>60); Globulin 2.6 g/dL (1.7-4.1); Glucose 99 mg/dL (80-110); HEMOLYSIS 18 (0-50); Lipase 166 U/L (23-300); Sodium 137 mmol/L (137-145); Total Protein 6.7 g/dL (6.3-8.2)
[2024-08-23 00:31] LABS: NT-proBNP (BNP-Adult 18+) 751 pg/mL (<450); Troponin I 0.025 ng/mL (0.01-0.034)
[2024-08-23 02:41] VITALS: BP 116/62; PULSE 62; RESP 16; O2SAT 98
== END 2024-08-23 02:45 | disposition left against medical advice (07) ==
PROVIDERS: Emergency Provider Emergency Medicine; Family Provider Family Medicine; PCP Family Medicine
DX: I48.91 Unspecified atrial fibrillation (principal)
CPT/HCPCS: 36415; 71045; 80053; 82550; 83690; 83735; 83880; 84484; 85025; 85610; 85730; 93005; 93010; 99283

== ENCOUNTER → 2024-10-23 13:32 | Outpatient (CLI) | payer MEDICARE, OTHER, SELFPAY ==
[2024-10-23 14:50] LABS: Prostate Specific Antigen 0.068 ng/mL (0.10-4.00)
== END ==
PROVIDERS: Family Provider Family Medicine; PCP Family Medicine; Referring Provider Urology; Visit Provider Urology
DX: C61 Malignant neoplasm of prostate (principal)
CPT/HCPCS: 36415; 84153

== ENCOUNTER → 2024-10-30 15:29 | Outpatient (CLI) | payer MEDICARE, OTHER, SELFPAY | PROVIDERS: Family Provider Family Medicine; PCP Family Medicine; Visit Provider Urology | DX: C61 Malignant neoplasm of prostate (principal); N32.81 Overactive bladder; R39.9 Unspecified symptoms and signs involving the genitourinary system; R39.14 Feeling of incomplete bladder emptying; Z92.3 Personal history of irradiation; Z79.818 Long term (current) use of other agents affecting estrogen receptors and estrogen levels | CPT/HCPCS: 51798; 81002; 87086; 96402; 99214; J9217 ==

== ENCOUNTER → 2024-10-31 15:58 | Outpatient (CLI) | payer MEDICARE, OTHER, SELFPAY ==
--- NOTE | 2024-10-31 16:00 | DI.MRI.S_ITS ---
PROCEDURE: MR SHOULDER LT WO CON INDICATIONS: BURSITIS OF LEFT SHOULDER TECHNIQUE: Noncontrast oblique coronal T2 fast spin echo with fat saturation, oblique sagittal T1 spin echo and T2 fast spin echo with fat saturation, axial T1 spin echo and T2 fast spin echo with fat saturation through the shoulder. COMPARISON: [facility] [place], CR, XR SHOULDER 2+ VIEWS LEFT, 08/15/2024, 15:42. FINDINGS: Image quality: Excellent. Rotator cuff: Full-thickness rupture of distal supraspinatus at its insertion on the humeral head is seen with up to 2.1 cm medial retraction of torn tendon fibers to the level of acromion. Moderate grade articular surface partial-thickness tear involving distal infraspinatus at its insertion on humeral head is seen extending to musculotendinous junction. Low-grade intrasubstance partial-thickness tear involving superior to mid fibers of distal subscapularis is seen. Sagittal images demonstrate mild to moderate supraspinatus muscle atrophy. Bones and bursae: No bone marrow contusions or fractures. Moderate acromioclavicular joint osteoarthritic changes are seen. Type 1 acromion without an os acromiale. Moderate amount of joint fluid and subacromial subdeltoid bursal fluid is seen, no loose bodies. Capsule and soft tissues: Signal abnormality and fraying involving anterior inferior glenoid labrum is seen suggestive of anterior-inferior labral tear. Low-grade partial-thickness tear involving proximal intra-articular portion of long head of biceps is seen. IMPRESSION: 1. Full-thickness rupture involving distal supraspinatus at its insertion on the humeral head with up to 2.1 cm medial retraction of torn tendon fibers to the level of acromion. Mild to moderate supraspinatus muscle atrophy. 2. Moderate grade articular surface partial-thickness tear involving distal infraspinatus extending to musculotendinous junction. Low-grade partial-thickness tear involving superior to mid fibers of distal subscapularis. 3. Moderate acromioclavicular joint osteoarthritis. No acute fracture or dislocation. Moderate joint effusion and subacromial subdeltoid bursal fluid, no loose bodies. 4. Suggestion of anterior-inferior glenoid labral tear. 5. Low-grade partial-thickness tear involving proximal intra-articular portion of long head of biceps. Dictated by: Nguyễn Tian M.D. on 10/31/2024 at 19:59 Approved by: Nguyễn Tian M.D. on 10/31/2024 at 20:02
== END ==
PROVIDERS: Family Provider Family Medicine; PCP Family Medicine; Referring Provider Orthopaedic Surgery; Visit Provider Orthopaedic Surgery
DX: M75.122 Complete rotator cuff tear or rupture of left shoulder, not specified as traumatic (principal); S46.112A Strain of muscle, fascia and tendon of long head of biceps, left arm, initial encounter; M75.52 Bursitis of left shoulder; M19.012 Primary osteoarthritis, left shoulder
CPT/HCPCS: 73221

== ENCOUNTER → 2025-01-26 10:46 | Outpatient (CLI) | payer MEDICARE, OTHER, SELFPAY ==
[2025-01-26 12:46] LABS: Prostate Specific Antigen < 0.064 ng/mL (0.10-4.00)
== END ==
PROVIDERS: PCP Family Medicine; Referring Provider Urology; Visit Provider Urology
DX: C61 Malignant neoplasm of prostate (principal)
CPT/HCPCS: 36415; 84153

== ENCOUNTER → 2025-01-29 10:28 | Outpatient (CLI) | payer MEDICARE, OTHER, SELFPAY | PROVIDERS: PCP Family Medicine; Visit Provider Urology | DX: R97.20 Elevated prostate specific antigen [PSA] (principal); R39.9 Unspecified symptoms and signs involving the genitourinary system; C61 Malignant neoplasm of prostate; N40.1 Benign prostatic hyperplasia with lower urinary tract symptoms; Z68.28 Body mass index [BMI] 28.0-28.9, adult | CPT/HCPCS: 51798; 81002; 87086; 96402; 99214; J9217 ==